=== PATIENT | male | born 1965 | race Caucasian/White ===

== ENCOUNTER 2024-05-01 11:19 | Emergency (ER) | payer OTHER ==
[~2024-05-01] VITALS: Ht 175.3 cm; Wt 72.6 kg
[2024-05-01 11:21] VITALS: BP 120/87; PULSE 60; RESP 20; TEMP 96.9; O2SAT 98
[2024-05-01 11:45] LABS: BASOPHIL % 0.2 % (0.2-1.2); EOSINOPHIL # 0.1 10^3/uL (0.0-0.2); EOSINOPHIL % 2.1 % (0.0-5.0); HEMATOCRIT(ML) 39.6 % (37.0-53.0); HEMOGLOBIN 13.3 g/dL (13.9-16.3); LYMPHOCYTES # 1.44 10^3/uL1 (1.0-4.8); LYMPHOCYTES % 25.1 % (24.0-44.0); MEAN CORP HGB 30.9 pg (26-34); MEAN CORP HGB CONCENTRATION 33.6 g/dL (33-36.5); MEAN CORP VOLUME 91.9 fL (78-100); MONOCYTES # 0.6 10^3/uL (0.3-0.8); MONOCYTES % 9.9 % (5.0-12.0); NEUTROPHIL # 3.6 10^3/uL (1.8-7.7); NEUTROPHILS % 62.5 % (41.0-85.0); PLATELET COUNT 278 10^3/uL (150-400); RED BLOOD CELL 4.31 10^6/uL (4.50-5.90); RED CELL DISTRIBUTION WIDTH 11.8 % (11.5-14.5); WHITE BLOOD CELL 5.7 10^3/uL (4.5-11.0)
[2024-05-01 11:46] LABS: +ADD MANUAL DIFF(NO CHRG) NO
[2024-05-01 12:00] LABS: INR 1.2; PROTHROMBIN PROTIME 12.7 SEC (9.7-11.6)
[2024-05-01 12:16] LABS: ALANINE AMINOTRANSFERASE(ML) 27 U/L (12-78); ALBUMIN(ML) 3.5 g/dL (3.4-5.0); ALBUMIN/GLOBULIN RATIO 1.093; ALKALINE PHOSPHATASE 64 U/L (50-136); ANION GAP 13.2; ASPARTATE AMINO TRANSFERASE 15 U/L (0-35); CALCIUM 8.3 mg/dL (8.4-10.5); CARBON DIOXIDE 26.3 mmol/L (20.0-32); CREATININE SERUM 1.23 mg/dL (0.59-1.40); EST GFR, NON-AA 60.4 (>/=60); GLUCOSE 107 mg/dL (74-106); POTASSIUM 4.5 mmol/L (3.6-5.2); SODIUM 138 mmol/L (132-145)
[2024-05-01 12:19] LABS: TROPONIN I HIGH SENSITIVITY < 4 ng/L (0-75)
[2024-05-01 12:30] VITALS: BP 109/61; PULSE 61; RESP 20; TEMP 96.9; O2SAT 98
[2024-05-01 13:30] VITALS: BP 108/64; PULSE 56; PULSE 59; RESP 16; RESP 20; TEMP 96.9; TEMP 98.2; O2SAT 97; O2SAT 98
== END 2024-05-01 13:30 | disposition short-term general hospital (02) ==
LOC: ER 11:19
DX: I63.9 Cerebral infarction, unspecified (principal); Z86.73 Personal history of transient ischemic attack (TIA), and cerebral infarction without residual deficits
CPT/HCPCS: 99291; 70498; 71045; 99292; 70496; 80053; 85025; 82948; 36415; 84484; 85610; 85730; 93005; 70450; Q9965

== ENCOUNTER → 2024-07-27 | Outpatient (CLI) | payer OTHER | END | disposition home or self-care (01) | LOC: RAD 13:41 | PROVIDERS: ATTEND Nurse Practitioner Family | DX: M19.012 Primary osteoarthritis, left shoulder (principal); M19.042 Primary osteoarthritis, left hand; M19.032 Primary osteoarthritis, left wrist; M47.819 Spondylosis without myelopathy or radiculopathy, site unspecified; M25.712 Osteophyte, left shoulder; M25.732 Osteophyte, left wrist; M79.89 Other specified soft tissue disorders; R07.81 Pleurodynia; M25.512 Pain in left shoulder; M25.522 Pain in left elbow; M25.532 Pain in left wrist; M79.632 Pain in left forearm | CPT/HCPCS: 71046; 71100-LT; 73030-LT; 73060-LT; 73090-LT; 73130-LT ==